=== PATIENT | female | born 1965 | race Caucasian/White ===

== ENCOUNTER 2016-08-18 05:36 | Emergency (ER) | payer OTHER ==
[~2016-08-18] VITALS: Ht 162.6 cm; Wt 62.5 kg
[~2016-08-18 05:36] MED LIST: BACTDS PO; CEPH-443 PO; HYDR-902 PO
[2016-08-18 05:56] VITALS: Ht 162.6 cm; Wt 62.5 kg
[2016-08-18] MEDS ORDERED: ONDANSETRON (ODT) 4 MG TAB ODT STA (07:45)
[2016-08-18] MEDS ORDERED: HYD25 PO (07:46)
[2016-08-18] MEDS ORDERED: ONDA4TAB14 PO (07:46)
[2016-08-18] MEDS ORDERED: IBUP800T25 PO (07:46)
[2016-08-18] MEDS ORDERED: HYDR-902 PO (07:46)
[2016-08-18] MEDS ORDERED: HYDROCODONE/APAP (10/325) TAB PO ONE (08:00)
--- NOTE | 2016-08-18 08:12 | ERD ---
ER Documentation Chief Complaint Date/Time DATE: 08/18/16 TIME: 08:07 Chief Complaint total body pain,hx arthritis HPI 51-year-old female who presents with body pain. The patient describes multiple years of bilateral shoulder and lower extremity pain that is dull aching and throbbing with paresthesias. This is unchanged today. The patient also is noted to have significant hypertension but denies any headache or chest pain. She states that she does not follow up with the primary care physician. She only takes aspirin for the pain. She has not followed up with a primary care doctor clinical research specialist. It is unclear what triggered her visit today. She denies any fevers chills or shortness of breath. ROS All systems reviewed and are negative except as per history of present illness. Medications Home Meds Active Scripts Hydrochlorothiazide* (Hydrochlorothiazide*) 25 Mg Tab, 25 MG PO DAILY, #30 TAB Prov:JOSE TRENT MD 08/18/16 Ibuprofen* (Motrin*) 800 Mg Tab, 800 MG PO Q6H Y for PAIN AND OR ELEVATED TEMP, #30 TAB Prov:JOSE TRENT MD 08/18/16 Ondansetron (Ondansetron Odt) 4 Mg Tab.rapdis, 4 MG PO Q6H Y for NAUSEA AND/OR VOMITING, #10 TAB Prov:JOSE TRENT MD 08/18/16 Hydrocodone/Acetaminophen ([place] 10-325 Tablet) 1 Each Tablet, 1 TAB PO Q6H Y for PAIN, #5 TAB Prov:JOSE TRENT MD 08/18/16 Hydrocodone/Acetaminophen ([place] 10-325 Tablet) 1 Each Tablet, 1 TAB PO Q6H Y for PAIN, #20 TAB Prov:CARLOS A MITTAL PA-C 06/06/16 Cephalexin* (Keflex*) 500 Mg Capsule, 500 MG PO QID for 7 Days, CAP Prov:CARLOS A MITTAL PA-C 06/06/16 Sulfamethoxazole-Trimethoprim* (Bactrim* DS) 800-160 Mg Tab, 1 TAB PO BID for 7 Days, TAB Prov:CARLOS A MITTAL PA-C 06/06/16 Allergies Allergies: Coded Allergies: No Known Allergy (Unverified , 06/06/16) PMhx/Soc History of Surgery: Yes (LEFT RING FINGER, TUBALIGATION.) Anesthesia Reaction: No Hx Neurological Disorder: No Hx Respiratory Disorders: No Hx Cardiac Disorders: No Hx Psychiatric Problems: No Hx Miscellaneous Medical Probl: No Hx Alcohol Use: Yes Hx Substance Use: No Hx Tobacco Use: Yes Smoking Status: Former smoker FmHx Family History: No diabetes Physical Exam Vitals Vital Signs Date Time Temp Pulse Resp B/P Pulse Ox O2 Delivery O2 Flow Rate FiO2 08/18/16 05:56 99.2 107 18 201/103 99 Physical Exam General: Disheveled but no significant distress Head: Normocephalic, atraumatic. Eyes: Pupils equally reactive, EOM intact ENT: Moist mucous membranes Neck: Supple, no lymphadenopathy Respiratory: Lungs clear bilaterally, no distress Cardiovascular: RRR, no murmurs, rubs, or gallops Abdominal: Soft, non-tender, non-distended, no peritoneal signs : Deferred MSK: No edema, no unilateral swelling, 5/5 strength. Upper extremities and shoulders with full active and passive range of motion, no evidence of dislocation. Steady gait. Sensation intact all 4 extremities Neurologic: Alert and oriented, moving all extremities, normal speech, no focal weakness, no cerebellar signs Skin: No rash Psych: Normal mood Results 24 hrs Current Medications Medications (Trade) Dose Ordered Sig/Fredi Route PRN Reason Start Time Stop Time Status Last Admin Dose Admin Acetaminophen/ Hydrocodone Bitart ([place] (10/325)) 1 tab ONCE ONCE PO 08/18/16 08:00 08/18/16 08:01 DC 08/18/16 07:49 Ondansetron HCl (Zofran Odt) 4 mg ONCE STAT ODT 08/18/16 07:45 08/18/16 07:46 DC 08/18/16 07:49 Procedures/MDM The patient apparently has chronic pain. Consider possible rheumatologic disease versus idiopathic chronic pain. No signs or symptoms of septic arthritis or acute fracture. The patient has full active and passive range of motion of bilateral shoulders. Her sensation is intact. The patient will benefit from primary care follow-up. The patient is in dire need of a primary care physician. The patient was given referral information to the [facility]. The patient's [facility] database shows no evidence of significant drug abuse. The patient's [facility] report shows no evidence of frequent visits. The patient will be given a pain control medication in a very small perception for [place] at home. The patient was advised to take Motrin. Avoid regular dosing of aspirin if not needed. Patient's blood pressure was elevated (>120/80) but appears stable without evidence of hypertensive emergency or urgency. The patient was counseled about the risks of hypertension and urged to pursue outpatient monitoring and therapy within a week with their primary care physician. The patient will be started on hydrochlorothiazide. No indication for chest x- ray EKG or CT brain given no evidence of endorgan dysfunction. I would like to avoid aggressive lowering of the patient's blood pressure given likely prolonged elevation in the 200s. We discussed follow up with the patient's primary care doctor within 24 to 48 hours as needed. We also discussed return to the emergency room for worsening symptoms or worsening condition. Discharge Medications: [place], Zofran, Motrin, hydrochlorothiazide We discussed the use of narcotics including avoidance of operating heavy machinery and driving as well as its addictive properties. Departure Diagnosis: Primary Impression: Chronic pain Chronic pain type: other chronic pain Qualified Code: G89.29 - Other chronic pain Additional Impression: Essential hypertension Condition: Stable Patient Instructions: Chronic Pain, Hypertension, New (Begin Treatment) Referrals: [facility] YOU HAVE RECEIVED A MEDICAL SCREENING EXAM AND THE RESULTS INDICATE THAT YOU DO NOT HAVE A CONDITION THAT REQUIRES URGENT TREATMENT IN THE EMERGENCY DEPARTMENT. FURTHER EVALUATION AND TREATMENT OF YOUR CONDITION CAN WAIT UNTIL YOU ARE SEEN IN YOUR DOCTORS OFFICE WITHIN THE NEXT 1-2 DAYS. IT IS YOUR RESPONSIBILITY TO MAKE AN APPOINTMENT FOR FOLOW-UP CARE. IF YOU HAVE A PRIMARY DOCTOR --you should call your primary doctor and schedule an appointment IF YOU DO NOT HAVE A PRIMARY DOCTOR YOU CAN CALL OUR PHYSICIAN REFERRAL HOTLINE AT IF YOU CAN NOT AFFORD TO SEE A PHYSICIAN YOU CAN CHOSE FROM THE FOLLOWING [facility] [address]. [facility] [address] [place] [address] [facility] [address] [facility]. [facility] [address] [facility] [facility] [address] [facility] [address]. [facility] YOU HAVE RECEIVED A MEDICAL SCREENING EXAM AND THE RESULTS INDICATE THAT YOU DO NOT HAVE A CONDITION THAT REQUIRES URGENT TREATMENT IN THE EMERGENCY DEPARTMENT. FURTHER EVALUATION AND TREATMENT OF YOUR CONDITION CAN WAIT UNTIL YOU ARE SEEN IN YOUR DOCTORS OFFICE WITHIN THE NEXT 1-2 DAYS. IT IS YOUR RESPONSIBILITY TO MAKE AN APPOINTMENT FOR FOLOW-UP CARE. IF YOU HAVE A PRIMARY DOCTOR --you should call your primary doctor and schedule and appointment IF YOU DO NOT HAVE A PRIMARY DOCTOR YOU CAN CALL OUR PHYSICIAN REFERRAL HOTLINE AT . IF YOU CAN NOT AFFORD TO SEE A PHYSICIAN YOU CAN CHOSE FROM THE FOLLOWING [facility] INSTITUTIONS: [facility] [id number] [place] [address] [facility] [address] [place], [place] [id number] [place] [address] [address] [place] [address] Additional Instructions: Call your primary care doctor TOMORROW for an appointment during the next 1 WEEK.Tell the personal secretary that you were referred from this facility.See the doctor sooner or return here if your condition worsens before your appointment time. JOSE TRENT MD Aug 18, 2016 08:12
== END 2016-08-18 08:16 | disposition home or self-care (01) ==
LOC: E/R 05:36
DX: G89.29 Other chronic pain (principal); I10 Essential (primary) hypertension; Z87.891 Personal history of nicotine dependence
CPT/HCPCS: Z7610 ×2; 99284

== ENCOUNTER 2017-01-31 07:47 | Emergency (ER) | payer OTHER ==
[~2017-01-31] VITALS: Ht 165.1 cm; Wt 63.0 kg
[~2017-01-31 07:47] MED LIST changes: +HYD25 PO; +IBUP800T25 PO; +ONDA4TAB14 PO
[2017-01-31 07:50] VITALS: Ht 165.1 cm; Wt 63.0 kg
--- NOTE | 2017-01-31 08:08 | ERD ---
ER Documentation Chief Complaint Date/Time DATE: 01/31/17 TIME: 08:06 Chief Complaint Vag bleed x 3 months HPI Patient is a 51-year-old female with a past medical history of fibromyalgia, arthritis and hepatitis C who presents to the ED with mild vaginal bleeding for the last 3 months. She states that in the last 8 months her periods have been irregular however she has been bleeding constantly, mild in the last 3 months with mild pelvic pain. She denies fever or chills. She denies dizziness or headache. She denies abdominal pain, nausea, vomiting or diarrhea. She has not seen her HAND TRUCKER doctor regarding this issue. Denies leg pain or leg swelling. Denies chest pain or cough or shortness of breath. ROS All systems reviewed and are negative except as per history of present illness. Medications Home Meds Active Scripts Nitrofurantoin Monohyd Macrocr* (Macrobid*) 100 Mg Capsr, 100 MG PO BID for 7 Days, CAP Prov:ALEJANDRA WASHINGTON PA-C 01/31/17 Acetaminophen* (Tylophen*) 500 Mg Capsule, 1 CAP PO Q6H Y for PAIN AND OR ELEVATED TEMP, #20 CAP Prov:ALEJANDRA WASHINGTON PA-C 01/31/17 Hydrochlorothiazide* (Hydrochlorothiazide*) 25 Mg Tab, 25 MG PO DAILY, #30 TAB Prov:JOSE TRENT MD 08/18/16 Ibuprofen* (Motrin*) 800 Mg Tab, 800 MG PO Q6H Y for PAIN AND OR ELEVATED TEMP, #30 TAB Prov:JOSE TRENT MD 08/18/16 Ondansetron (Ondansetron Odt) 4 Mg Tab.rapdis, 4 MG PO Q6H Y for NAUSEA AND/OR VOMITING, #10 TAB Prov:JOSE TRENT MD 08/18/16 Hydrocodone/Acetaminophen ([place] 10-325 Tablet) 1 Each Tablet, 1 TAB PO Q6H Y for PAIN, #5 TAB Prov:JOSE TRENT MD 08/18/16 Hydrocodone/Acetaminophen ([place] 10-325 Tablet) 1 Each Tablet, 1 TAB PO Q6H Y for PAIN, #20 TAB Prov:CARLOS A MITTAL PA-C 06/06/16 Cephalexin* (Keflex*) 500 Mg Capsule, 500 MG PO QID for 7 Days, CAP Prov:CARLOS A MITTAL PA-C 06/06/16 Sulfamethoxazole-Trimethoprim* (Bactrim* DS) 800-160 Mg Tab, 1 TAB PO BID for 7 Days, TAB Prov:CARLOS A MITTAL PA-C 06/06/16 Allergies Allergies: Coded Allergies: No Known Allergy (Unverified , 06/06/16) PMhx/Soc History of Surgery: Yes (LEFT RING FINGER, TUBALIGATION.) Anesthesia Reaction: No Hx Neurological Disorder: No Hx Respiratory Disorders: No Hx Cardiac Disorders: No Hx Psychiatric Problems: No Hx Miscellaneous Medical Probl: Yes (Hepatitis C, fibromyalgia, arthritis) Hx Alcohol Use: Yes (1-2 glasses per day) Hx Substance Use: No Hx Tobacco Use: Yes (10 cigarettes per day) Smoking Status: Never smoker FmHx Family History: No coronary disease, No diabetes, No other Physical Exam Vitals Vital Signs Date Time Temp Pulse Resp B/P Pulse Ox O2 Delivery O2 Flow Rate FiO2 01/31/17 07:50 98.0 88 20 156/87 97 Physical Exam GENERAL: Well-developed, well-nourished female. Appears in no acute distress. HEAD: Normocephalic, atraumatic. LUNG: Clear to auscultation bilaterally. No rhonchi, wheezing, rales or coarse breath sounds. HEART: Regular rate and rhythm. No murmurs, rubs or gallops. ABDOMEN: No scars, ecchymosis or rashes noted. Soft, nontender, and nondistended. Positive bowel sounds in all four quadrants. No rebound tenderness , no guarding. (-) McBurneys point tenderness. No CVA tenderness. BACK: No midline tenderness. Extremities: Equal pulses bilaterally. No peripheral clubbing, cyanosis or edema. No unilateral leg swelling. NEUROLOGIC: Alert and oriented. Moving all four extremities. 5/5 strength in all extremities. Normal speech. Steady gait. SKIN: Normal color. Warm and dry. No rashes or lesions. Capillary refill < 2 seconds Result Diagram: 01/31/17 0823 Results 24 hrs Laboratory Tests Test 01/31/17 08:23 01/31/17 09:34 White Blood Count 9.210^3/ul Red Blood Count 4.6210^6/ul Hemoglobin 13.5g/dl Hematocrit 40.4% Mean Corpuscular Volume 87.4fl Mean Corpuscular Hemoglobin 29.2pg Mean Corpuscular Hemoglobin Concent 33.4g/dl Red Cell Distribution Width 13.8% Platelet Count 44301^3/UL Mean Platelet Volume 10.1fl Neutrophils % 65.9% Lymphocytes % 25.9% Monocytes % 5.8% Eosinophils % 1.9% Basophils % 0.3% Nucleated Red Blood Cells % 0.0/100WBC Neutrophils # 6.110^3/ul Lymphocytes # 2.410^3/ul Monocytes # 0.510^3/ul Eosinophils # 0.210^3/ul Basophils # 0.010^3/ul Nucleated Red Blood Cells # 0.010^3/ul Urine Color RED Urine Clarity CLOUDY Urine pH 5.0 Urine Specific [place] 1.020 Urine Ketones TRACEmg/dL Urine Nitrite POSITIVEmg/dL Urine Bilirubin NEGATIVEmg/dL Urine Urobilinogen 2+mg/dL Urine Leukocyte Esterase TRACELeu/ul Urine Microscopic RBC > 182/HPF Urine Microscopic WBC > 182/HPF Urine Squamous Epithelial Cells FEW/HPF Urine Bacteria FEW/HPF Urine Hemoglobin 3+mg/dL Urine Glucose NEGATIVEmg/dL Urine Total Protein 2+mg/dl Procedures/MDM ER COURSE: I kept the patient and/or family informed of laboratory and diagnostic imaging results throughout the emergency room course. IMAGING STUDIES [place] [address] Radiology Main Line: [phone] DIAGNOSTIC IMAGING REPORT Patient: SIRENA CHE : 1965 Age: 51 Sex: F MR #: [id number] DOS: 01/31/17 0803 Ordering MD: ALEJANDRA WASHINGTON PA-C Location: [facility] Room/Bed: PROCEDURE: US Pelvis CLINICAL INDICATION: pelvic pain, vaginal bleeding TECHNIQUE: Multiple sonographic images of the pelvis were obtained utilizing a transabdominal and endovaginal technique. The images were reviewed on a PACS workstation. COMPARISON: None. LMP: 10/28/2016 FINDINGS: The uterus measures 7.9 x 3.6 x 4.9 cm. The endometrial echo complex measures 11 mm in thickness. The uterus is heterogeneous and the junctional zone between the endometrium and myometrium is indistinct. A sub-centimeter Nabothian cyst is identified. The right ovary measures 3.6 x 2.4 x 3.4 cm. The left ovary is not visualized. There is normal vascular flow in the right ovary. There is a well-circumscribed mildly hypoechoic round lesion with uniform echoes in the right ovary measuring up to 1.6 cm which may be cystic given its posterior acoustic enhancement. A possible focus of vascular flow is noted within it. No significant pelvic free fluid is identified. IMPRESSION: The uterus is heterogeneous and the junctional zone between the endometrium and myometrium is indistinct. Correlation for adenomyosis is recommended. 1.6 cm well-circumscribed possibly complex cystic lesion in the right ovary is nonspecific. A possible focus of vascular flow is noted within it. This may be an endometrioma although malignancy cannot be entirely excluded. Follow-up ultrasound in 6-12 weeks is recommended for further evaluation. Nonvisualization of the left ovary. RPTAT: EE Physician Jose Date Time Electronically viewed and signed by Physician Jose on 01/31/2017 08:56 RA/ CC: ALEJANDRA WASHINGTON PA-C LABORATORY STUDIES [place] [address] Radiology Main Line: [phone] DIAGNOSTIC IMAGING REPORT Patient: SIRENA CHE : 1965 Age: 51 Sex: F MR #: [id number] DOS: 01/31/17 0803 Ordering MD: ALEJANDRA WASHINGTON PA-C Location: [facility] Room/Bed: PROCEDURE: US Pelvis CLINICAL INDICATION: pelvic pain, vaginal bleeding TECHNIQUE: Multiple sonographic images of the pelvis were obtained utilizing a transabdominal and endovaginal technique. The images were reviewed on a PACS workstation. COMPARISON: None. LMP: 10/28/2016 FINDINGS: The uterus measures 7.9 x 3.6 x 4.9 cm. The endometrial echo complex measures 11 mm in thickness. The uterus is heterogeneous and the junctional zone between the endometrium and myometrium is indistinct. A sub-centimeter Nabothian cyst is identified. The right ovary measures 3.6 x 2.4 x 3.4 cm. The left ovary is not visualized. There is normal vascular flow in the right ovary. There is a well-circumscribed mildly hypoechoic round lesion with uniform echoes in the right ovary measuring up to 1.6 cm which may be cystic given its posterior acoustic enhancement. A possible focus of vascular flow is noted within it. No significant pelvic free fluid is identified. IMPRESSION: The uterus is heterogeneous and the junctional zone between the endometrium and myometrium is indistinct. Correlation for adenomyosis is recommended. 1.6 cm well-circumscribed possibly complex cystic lesion in the right ovary is nonspecific. A possible focus of vascular flow is noted within it. This may be an endometrioma although malignancy cannot be entirely excluded. Follow-up ultrasound in 6-12 weeks is recommended for further evaluation. Nonvisualization of the left ovary. RPTAT: EE Physician Jose Date Time Electronically viewed and signed by Physician Jose on 01/31/2017 08:56 RA/ CC: ALEJANDRA WASHINGTON PA-C MEDICAL DECISION MAKING: This is a 51-year-old female with a past medical history of fibromyalgia and hepatitis C who presents with mild vaginal bleeding 3 months with irregular periods 8 months. Vital signs were reviewed. Patient is afebrile. Patient is not hypoxic. Patient is not toxic or ill-appearing. Her CBC was within normal limits and did not show signs of anemia or severe infection. Her ultrasound shows possible adenomyosis with 1.6 cm well-circumscribed possibly complex cystic lesion in the right ovary is nonspecific. A possible focus of vascular flow is noted within it. This may be an endometrioma although malignancy cannot be entirely excluded. Follow-up ultrasound in 6-12 weeks is recommended for further evaluation. These results the patient and advised her to follow-up with an HAND TRUCKER for the possible malignant cystic lesion. Patient is aware that she needs to follow- up. Patient is hemodynamically stable. Low suspicion for ectopic , , molar , endometriosis, PID, cervicitis, septic , molar , HELLP syndrome. Her urinalysis shows positive nitrites with trace leukocytes. Patient has a UTI. Low suspicion for pyelonephritis as patient is afebrile and does not have back pain. Low suspicion for septic or obstructive stone. DISCHARGE: At this time, patient is stable for discharge and outpatient management with no new complaints during the ER course. Patient was sent home with copy of imaging report, a list of HAND TRUCKER referral and Tylenol. Patient will be discharged home with instructions to recheck for new or worsening symptoms such as fever, nausea , weakness, LOC and to follow up with primary care in the next 1-2 days. Patient was advised to return to the ER for any new or worsening symptoms. Plan was discussed and patient and/or family understands and agrees. Home instructions were given. Departure Diagnosis: Primary Impression: Vaginal bleeding Additional Impression: UTI (urinary tract infection) Urinary tract infection type: site unspecified Hematuria presence: with hematuria Qualified Code: N39.0 - Urinary tract infection with hematuria, site unspecified Condition: Stable ALEJANDRA WASHINGTON PA-C Jan 31, 2017 08:08
[2017-01-31 08:42] LABS: ADD SCAN DIFF NO
[2017-01-31 08:46] LABS: BASOPHILS % 0.3 % (0.0-2.0); EOSINOPHILS # 0.2 10^3/ul (0.0-0.5); EOSINOPHILS % 1.9 % (0.0-7.0); HEMATOCRIT 40.4 % (37.0-47.0); HEMOGLOBIN 13.5 g/dl (12.0-16.0); LYMPHOCYTES # 2.4 10^3/ul (0.8-2.9); LYMPHOCYTES % 25.9 % (15.0-51.0); MEAN CORPUSCULAR HEMOGLOBIN 29.2 pg (29.0-33.0); MEAN CORPUSCULAR HGB CONC 33.4 g/dl (32.0-37.0); MEAN CORPUSCULAR VOLUME 87.4 fl (82.0-101.0); MEAN PLATELET VOLUME 10.1 fl (7.4-10.4); MONOCYTE # 0.5 10^3/ul (0.3-0.9); MONOCYTES % 5.8 % (0.0-11.0); NEUTROPHIL # 6.1 10^3/ul (1.6-7.5); NEUTROPHILS % 65.9 % (39.0-77.0); PLATELET COUNT 292 10^3/UL (140-415); RED BLOOD COUNT 4.62 10^6/ul (4.20-5.40); RED CELL DISTRIBUTION WIDTH 13.8 % (11.5-14.5); WHITE BLOOD COUNT 9.2 10^3/ul (4.8-10.8)
--- NOTE | 2017-01-31 08:56 | RADRPT ---
PROCEDURE: US Pelvis CLINICAL INDICATION: pelvic pain, vaginal bleeding TECHNIQUE: Multiple sonographic images of the pelvis were obtained utilizing a transabdominal and endovaginal technique. The images were reviewed on a PACS workstation. COMPARISON: None. LMP: 10/28/2016 FINDINGS: The uterus measures 7.9 x 3.6 x 4.9 cm. The endometrial echo complex measures 11 mm in thickness. The uterus is heterogeneous and the junctional zone between the endometrium and myometrium is indist inct. A sub-centimeter Nabothian cyst is identified. The right ovary measures 3.6 x 2.4 x 3.4 cm. The left ovary is not visualized. There is normal vascu lar flow in the right ovary. There is a well-circumscribed mildly hypoechoic round lesion with uniform echoes in the right ovary measuring up to 1.6 cm which may be cystic given its posterior acoustic enhancement. A possible foc us of vascular flow is noted within it. No significant pelvic free fluid is identified. IMPRESSION: The uterus is heterogeneous and the junctional zone between the endometrium and myometrium is indist inct. Correlation for adenomyosis is recommended. 1.6 cm well-circumscribed possibly complex cystic lesion in the right ovary is nonspecific. A possi ble focus of vascular flow is noted within it. This may be an endometrioma although malignancy rosa ot be entirely excluded. Follow-up ultrasound in 6-12 weeks is recommended for further evaluation. Nonvisualization of the left ovary. RPTAT: EE Physician Jose Date Time Electronically viewed and signed by Physician Jose on 01/31/2017 08:56 /
[2017-01-31] MEDS ORDERED: ACET500C5 PO (09:07)
[2017-01-31 09:46] LABS: ADD UMIC YES; UR ASCORBIC ACID NEGATIVE (NEGATIVE); UR BACTERIA FEW /HPF (NONE SEEN); UR BILIRUBIN (Dip) NEGATIVE (NEGATIVE); UR BLOOD (Dip) 3+ mg/dL (NEGATIVE); UR CLARITY CLOUDY (CLEAR); UR COLOR RED (YELLOW); UR GLUCOSE (Dip) NEGATIVE (NEGATIVE); UR KETONES (Dip) TRACE mg/dL (NEGATIVE); UR LEUKOCYTE ESTERASE (Dip) TRACE Leu/ul (NEGATIVE); UR NITRITE (Dip) POSITIVE (NEGATIVE); UR RBC > 182 /HPF (0-5); UR SQUAMOUS EPITHELIAL CELL FEW /HPF (FEW); UR TOTAL PROTEIN (Dip) 2+ mg/dl (NEGATIVE); UR UROBILINOGEN (Dip) 2+ mg/dL (NEGATIVE); UR WBC CLUMPS MANY /HPF (NONE SEEN)
[2017-01-31] MEDS ORDERED: NITR-58 PO (09:56)
== END 2017-01-31 10:05 | disposition home or self-care (01) ==
LOC: FTE 07:47
DX: N93.8 Other specified abnormal uterine and vaginal bleeding (principal); N39.0 Urinary tract infection, site not specified; R10.2 Pelvic and perineal pain; Z87.891 Personal history of nicotine dependence
CPT/HCPCS: 36415; 76830; 76856; 81001; 85025

== ENCOUNTER 2017-05-07 16:10 | Emergency (ER) | payer OTHER ==
[~2017-05-07] VITALS: Ht 162.6 cm; Wt 62.5 kg
[~2017-05-07 16:10] MED LIST changes: +ACET500C5 PO; -HYD25 PO; +HYDR25TA6 PO; +NITR-58 PO
[2017-05-07 16:17] VITALS: Ht 162.6 cm; Wt 62.5 kg
[2017-05-07] MEDS ORDERED: HYDROCODONE/APAP (5/325) TAB PO ONE (18:00)
[2017-05-07] MEDS: KETOROLAC 60 MG INJ IM STA ×2 (18:11→18:38)
[2017-05-07 18:35] LABS: URINE BLOOD (Dip) POC Trace-intact (NEGATIVE)
[2017-05-07 18:46] LABS: URINE BLOOD (Dip) POC Trace-intact (NEGATIVE)
[2017-05-07] MEDS ORDERED: CEPH-443 PO (18:54)
[2017-05-07] MEDS ORDERED: TRAM50TA2 PO (18:55)
--- NOTE | 2017-05-07 18:58 | ERD ---
ER Documentation Chief Complaint Date/Time DATE: 05/07/17 TIME: 18:56 Chief Complaint bilateral knee pain,swelling, and numbness HPI This 51-year-old female complains of pain behind her bilateral knees for the last day. Started after walking with her walker. She also has pain in anterior knees. She has a history of arthritis and low back pain. She denies any bowel or bladder incontinence, weakness. She also complains of paresthesias in her thighs extending down to her knees. Patient has a history of fibromyalgia AND chronic musculoskeletal pain. Patient has an additional complaint of urinary frequency and urgency. She denies any fevers, vomiting, abdominal pain. ROS All systems reviewed and are negative except as per history of present illness. Medications Home Meds Active Scripts Tramadol HCl (Tramadol HCl) 50 Mg Tablet, 50 MG PO Q4 Y for PAIN, #15 TAB Prov:CHANDRA LA MD 05/07/17 Cephalexin* (Keflex*) 500 Mg Capsule, 500 MG PO QID for 5 Days, CAP Prov:CHANDRA LA MD 05/07/17 Nitrofurantoin Monohyd Macrocr* (Macrobid*) 100 Mg Capsr, 100 MG PO BID for 7 Days, CAP Prov:ALEJANDRA WASHINGTON PA-C 01/31/17 Acetaminophen* (Tylophen*) 500 Mg Capsule, 1 CAP PO Q6H Y for PAIN AND OR ELEVATED TEMP, #20 CAP Prov:ALEJANDRA WASHINGTON PA-C 01/31/17 Hydrochlorothiazide* (Hydrochlorothiazide*) 25 Mg Tab, 25 MG PO DAILY, #30 TAB Prov:JOSE TRENT MD 08/18/16 Ibuprofen* (Motrin*) 800 Mg Tab, 800 MG PO Q6H Y for PAIN AND OR ELEVATED TEMP, #30 TAB Prov:JOSE TRENT MD 08/18/16 Ondansetron (Ondansetron Odt) 4 Mg Tab.rapdis, 4 MG PO Q6H Y for NAUSEA AND/OR VOMITING, #10 TAB Prov:JOSE TRENT MD 08/18/16 Hydrocodone/Acetaminophen ([place] 10-325 Tablet) 1 Each Tablet, 1 TAB PO Q6H Y for PAIN, #5 TAB Prov:JOSE TRENT MD 08/18/16 Hydrocodone/Acetaminophen ([place] 10-325 Tablet) 1 Each Tablet, 1 TAB PO Q6H Y for PAIN, #20 TAB Prov:CARLOS A MITTAL PA-C 06/06/16 Cephalexin* (Keflex*) 500 Mg Capsule, 500 MG PO QID for 7 Days, CAP Prov:CARLOS A MITTAL PA-C 06/06/16 Sulfamethoxazole-Trimethoprim* (Bactrim* DS) 800-160 Mg Tab, 1 TAB PO BID for 7 Days, TAB Prov:CARLOS A MITTAL PA-C 06/06/16 Allergies Allergies: Coded Allergies: No Known Allergy (Unverified , 06/06/16) PMhx/Soc History of Surgery: Yes (LEFT RING FINGER, TUBALIGATION.) Anesthesia Reaction: No Hx Neurological Disorder: No Hx Respiratory Disorders: No Hx Cardiac Disorders: No Hx Psychiatric Problems: No Hx Miscellaneous Medical Probl: Yes (Hepatitis C, fibromyalgia, arthritis) Hx Alcohol Use: Yes (1-2 glasses per day) Hx Substance Use: No Hx Tobacco Use: Yes (10 cigarettes per day) Smoking Status: Current every day smoker Physical Exam Vitals Vital Signs Date Time Temp Pulse Resp B/P Pulse Ox O2 Delivery O2 Flow Rate FiO2 05/07/17 16:17 98.6 93 18 153/91 97 Physical Exam Const: [], [id number]. Head: Atraumatic Eyes: Normal Conjunctiva ENT: Normal External Ears, Nose and Mouth. Poor dentition Neck: Full range of motion..~ No meningismus. Resp: Clear to auscultation bilaterally Cardio: Regular rate and rhythm, no murmurs Abd: Soft, non tender, non distended. Normal bowel sounds Skin: No petechiae or rashes Back: No midline or flank tenderness Ext: No cyanosis, or edema mild effusion in the left knee. Tenderness in the bilateral popliteal fossa. No calf swelling or Homans sign. No warmth or deformities. Neur: Awake and alert Psych: Normal Mood and Affect Results 24 hrs Laboratory Tests Test 05/07/17 18:43 05/07/17 18:53 Bedside Urine pH (LAB) 5.5 5.5 Bedside Urine Protein (LAB) Negative Trace Bedside Urine Glucose (UA) Negative Negative Bedside Urine Ketones (LAB) Trace Trace Bedside Urine Blood Trace-intact Trace-intact Bedside Urine Nitrite (LAB) Positive Positive Bedside Urine Leukocyte Esterase (L 1+ 1+ Current Medications Medications (Trade) Dose Ordered Sig/Fredi Route PRN Reason Start Time Stop Time Status Last Admin Dose Admin Ketorolac Tromethamine (Toradol) 60 mg ONCE STAT IM 05/07/17 17:39 05/07/17 17:40 DC 05/07/17 18:38 Acetaminophen/ Hydrocodone Bitart ([place] (5/325)) 1 tab ONCE ONCE PO 05/07/17 18:00 05/07/17 18:01 DC 05/07/17 18:12 Cephalexin (Keflex) 500 mg ONCE ONCE PO 05/07/17 19:00 05/07/17 19:01 Procedures/MDM Was given Toradol 60 mg IM. Given [place] 5 mg by mouth or urine shows nitrites and leukocytes and hCG is negative. Clinical exam shows no findings to suggest DVT, septic arthritis, fracture, dislocation, ischemia. Patient does not have signs or symptoms to suggest cauda equina syndrome, epidural abscess or acute neurologic deficit. She will treated with Keflex and tramadol and further observation at home and primary care follow-up and return precautions. The patient was stable with no new complaints during the ER course. Clinically, there is no current evidence to suggest meningitis, sepsis, acute abdomen, pneumonia, acute coronary syndrome, pulmonary embolism, or any other emergent condition appearing to require further evaluation or hospitalization. The patient should certainly return for any new or worsening symptoms per the aftercare instructions. They should otherwise follow-up with her primary care doctor for reevaluation this week. Disclaimer: Inadvertent spelling and grammatical errors are likely due to EHR/dictation software use and do not reflect on the overall quality of patient care. Also, please note that the electronic time recorded on this note does not necessarily reflect the actual time of the patient encounter. Departure Diagnosis: Primary Impression: UTI (urinary tract infection) Urinary tract infection type: acute cystitis Hematuria presence: without hematuria Qualified Code: N30.00 - Acute cystitis without hematuria Additional Impression: Knee pain Chronicity: acute Laterality: bilateral Qualified Code: M25.561 - Acute pain of both knees Condition: Stable Patient Instructions: Understanding Urinary Tract Infections (UTIs), Knee Pain , Uncertain Cause, Paraesthesias Referrals: [facility] YOU HAVE RECEIVED A MEDICAL SCREENING EXAM AND THE RESULTS INDICATE THAT YOU DO NOT HAVE A CONDITION THAT REQUIRES URGENT TREATMENT IN THE EMERGENCY DEPARTMENT. FURTHER EVALUATION AND TREATMENT OF YOUR CONDITION CAN WAIT UNTIL YOU ARE SEEN IN YOUR DOCTORS OFFICE WITHIN THE NEXT 1-2 DAYS. IT IS YOUR RESPONSIBILITY TO MAKE AN APPOINTMENT FOR FOLOW-UP CARE. IF YOU HAVE A PRIMARY DOCTOR --you should call your primary doctor and schedule an appointment IF YOU DO NOT HAVE A PRIMARY DOCTOR YOU CAN CALL OUR PHYSICIAN REFERRAL HOTLINE AT IF YOU CAN NOT AFFORD TO SEE A PHYSICIAN YOU CAN CHOSE FROM THE FOLLOWING [facility] [address] [facility] [address] [facility] [address] [facility] [address] [place] [facility] [address] [facility]. [address] Additional Instructions: Urine shows infection. See primary doctor for further evaluation and treatment. For fevers, redness symptoms. CHANDRA LA MD May 07, 2017 18:58
[2017-05-07] MEDS ORDERED: CEPHALEXIN 500 MG CAP PO ONE (19:00)
== END 2017-05-07 19:23 | disposition home or self-care (01) ==
LOC: FTE 16:10
DX: N30.00 Acute cystitis without hematuria (principal); M25.562 Pain in left knee; F17.210 Nicotine dependence, cigarettes, uncomplicated
CPT/HCPCS: 81003; J1885; Z7610; 96372

== ENCOUNTER 2017-11-22 21:03 | Emergency (ER) | END 2017-11-23 08:49 | disposition short-term general hospital (02) ==

== ENCOUNTER 2019-01-11 21:19 | Emergency (ER) | payer OTHER ==
[~2019-01-11] VITALS: Ht 162.6 cm; Wt 63.6 kg
[~2019-01-11 21:19] MED LIST changes: +HYDR-3980 PO; -HYDR-902 PO; -IBUP800T25 PO; +IBUP800T48 PO; +TRAM50TA2 PO
[2019-01-11 21:30] VITALS: Ht 162.6 cm; Wt 63.6 kg
--- NOTE | 2019-01-11 22:06 | ERD ---
ER Documentation Chief Complaint Chief Complaint vag bleed x2 day. on menopause x1 year. HPI 53-year-old female, with history of hepatitis C, presents to the emergency department, complaining of 3 days with dysuria, associated with vaginal spotting. The patient denies fever or chills, no abdominal pain, no nausea or vomiting. ROS All systems reviewed and are negative except as per history of present illness. Medications Home Meds Active Scripts Ciprofloxacin Hcl* (Ciprofloxacin Hcl*) 250 Mg Tablet, 250 MG PO BID, #14 TAB Prov:LEROY HENNESSY MD 01/12/19 Tramadol HCl (Tramadol HCl) 50 Mg Tablet, 50 MG PO Q4 PRN for PAIN, #15 TAB Prov:CHANDRA LA MD 05/07/17 Cephalexin* (Keflex*) 500 Mg Capsule, 500 MG PO QID for 5 Days, CAP Prov:CHANDRA LA MD 05/07/17 Nitrofurantoin Monohyd Macrocr* (Macrobid*) 100 Mg Capsr, 100 MG PO BID for 7 Days, CAP Prov:ALEJANDRA WASHINGTON PA-C 01/31/17 Acetaminophen* (Tylophen*) 500 Mg Capsule, 1 CAP PO Q6H PRN for PAIN AND OR ELEVATED TEMP, #20 CAP Prov:ALEJANDRA WASHINGTON PA-C 01/31/17 Hydrochlorothiazide* (Hydrochlorothiazide*) 25 Mg Tab, 25 MG PO DAILY, #30 TAB Prov:JOSE TRENT MD 08/18/16 Ibuprofen* (Motrin*) 800 Mg Tab, 800 MG PO Q6H PRN for PAIN AND OR ELEVATED TEMP, #30 TAB Prov:JOSE TRENT MD 08/18/16 Ondansetron (Ondansetron Odt) 4 Mg Tab.rapdis, 4 MG PO Q6H PRN for NAUSEA AND/OR VOMITING, #10 TAB Prov:JOSE TRENT MD 08/18/16 Hydrocodone/Acetaminophen ([place] 10-325 Tablet) 1 Each Tablet, 1 TAB PO Q6H PRN for PAIN, #5 TAB Prov:JOSE TRENT MD 08/18/16 Hydrocodone/Acetaminophen ([place] 10-325 Tablet) 1 Each Tablet, 1 TAB PO Q6H PRN for PAIN, #20 TAB Prov:CARLOS A MITTAL PA-C 06/06/16 Cephalexin* (Keflex*) 500 Mg Capsule, 500 MG PO QID for 7 Days, CAP Prov:CARLOS A MITTAL PA-C 06/06/16 Sulfamethoxazole-Trimethoprim* (Bactrim* DS) 800-160 Mg Tab, 1 TAB PO BID for 7 Days, TAB Prov:CARLOS A MITTAL PA-C 06/06/16 Allergies Allergies: Coded Allergies: No Known Allergy (Unverified , 06/06/16) PMhx/Soc History of Surgery: Yes (Hytsy, tonsils) Anesthesia Reaction: No Hx Neurological Disorder: No Hx Respiratory Disorders: No Hx Cardiac Disorders: No Hx Psychiatric Problems: No Hx Miscellaneous Medical Probl: Yes (Fibromyalgia) Hx Alcohol Use: No Hx Substance Use: No Hx Tobacco Use: No Smoking Status: Never smoker FmHx Family History: diabetes; No coronary disease Physical Exam Vitals Vital Signs Date Temp Pulse Resp B/P (MAP) Pulse Ox O2 O2 Flow FiO2 Time Delivery Rate 01/12/19 97.6 82 18 164/95 97 Room Air 01:07 (118) 01/11/19 97.0 96 16 185/93 99 21:30 (123) Physical Exam Const: No acute distress Head: Atraumatic Eyes: Normal Conjunctiva ENT: Normal External Ears, Nose and Mouth. Neck: Full range of motion. No meningismus. Resp: Clear to auscultation bilaterally Cardio: Regular rate and rhythm, no murmurs Abd: Soft, non tender, non distended. Normal bowel sounds. : Normal external genitalia, bimanual exam, no evidence of vaginal bleeding. Skin: No petechiae or rashes Back: No midline or flank tenderness Ext: No cyanosis, or edema Neur: Awake and alert Psych: Normal Mood and Affect Results 24 hrs Laboratory Tests Test 01/11/19 22:05 Urine Color YELLOW Urine Clarity SLIGHTLY CLOUDY Urine pH 5.0 Urine Specific [place] 1.028 Urine Ketones NEGATIVE mg/dL Urine Nitrite NEGATIVE mg/dL Urine Bilirubin NEGATIVE mg/dL Urine Urobilinogen 2+ mg/dL Urine Leukocyte Esterase 2+ Nasim/ul Urine Microscopic RBC 24 /HPF Urine Microscopic WBC 84 /HPF Urine Squamous Epithelial Cells FEW /HPF Urine Bacteria FEW /HPF Urine Mucus MANY /HPF Urine Hemoglobin 2+ mg/dL Urine Glucose NEGATIVE mg/dL Urine Total Protein NEGATIVE mg/dl Urine Test NEGATIVE Current Medications Medications Dose Sig/Fredi Start Time Status Last (Trade) Ordered Route PRN Stop Time Admin Dose Reason Admin 500 mg ONCE ONCE 01/11/19 DC 01/11/19 Ciprofloxacin PO 23:30 01/11/19 23:28 (Cipro) 23:31 Patient: SIRENA CHE : 1965 Age: 53 Sex: F MR #: [id number] DOS: 01/11/19 2204 Ordering MD: LEROY HENNESSY MD Location: [facility] Room/Bed: PROCEDURE: CT Abdomen and Pelvis without contrast. CLINICAL INDICATION: Abdominal pain, pelvic pain, postmenopausal vaginal bleeding. TECHNIQUE: A CT scan of the abdomen and pelvis was performed without intravenous contrast. Coronal and sagittal reformatted images were generated. DICOM images are available. Images were reviewed on a high-resolution PACS workstation. CTDIvol: 8.40 mGy. DLP: 436.56 mGy-cm. One or more of the following dose reduction techniques were used: - Automated exposure control. - Adjustment of the mA and/or kV according to patient size. - Use of iterative reconstruction technique. COMPARISON: Pelvic ultrasound dated 01/31/2017. FINDINGS: The lung bases are clear. Evaluation of the abdominal and pelvic viscera is limited by the lack of oral and intravenous contrast. The liver is mildly enlarged (18.8 cm). The gallbladder is contracted. The c ommon bile duct is not dilated. The spleen is not enlarged. No pancreatic lesion is identified and there is no pancreatic ductal dilatation. The adrenal glands are unremarkable. The kidneys are normal in size. There is no perinephric fat stranding. No h ydronephrosis is seen. No urinary stone is identified. The small and large bowel are normal in caliber. There is no bowel wall thickening. There is mild sigmoid colon diverticulosis. The appendix is normal. The urinary bladder is unremarkable. There are bilateral ovarian cysts measuring up to 2.5 cm on the left. The endometrium measures 2.3 cm in thickness. No lymphadenopathy is identified. There is no ascites. No pneumoperitoneum is seen. There are mild to moderate arterial calcifications. No suspicious osseous lesion is identified. There is grade 1 degenerative L4 anterolisthesis and severe spinal canal stenosis L4-5. IMPRESSION: Abnormal endometrial thickening (2.3 cm). Correlation with ultrasound is recommended. Bilateral ovarian cysts measuring up to 2.5 cm on the left. Mild hepatomegaly. Mild sigmoid colon diverticulosis. Mild to moderate atherosclerotic arterial calcifications. Grade 1 degenerative L4 anterolisthesis and severe spinal canal stenosis L4-5. Procedures/MDM Differential diagnosis include but not limited to: UTI, colitis, gastroenteritis, kidney stones, irritable bowel syndrome, inflammatory bowel syndrome, malabsorption syndrome, cholelithiasis, food intolerance, medication side effect, pancreatitis, diverticulitis, bowel obstruction. Low suspicion for acute abdomen Physical examination and clinical presentation consistent most likely with urinary tract infection. CT of the abdomen and pelvis shows abnormal endometrium, the patient was informe d about the results and was told to follow-up with her primary doctor for further evaluation. During the ED course the patient remained stable, no new complaints. Results and clinical impression discussed with patient who agrees with management. The patient is stable to be treated outpatient and will be discharged home, some side effects of prescribed medications (headache, rash, n ausea, vomiting, diarrhea, drowsiness, habituation, bleeding, hypertension, interactions with other medications) were reviewed. The patient was instructed to follow up with the primary care provider in the next 48h. If symptoms persist, worsen or new symptoms develop, then patient should return to the ED immediately. Instructions explained and given directly by me to the patient with acknowledgment and demonstrated understanding. Disclaimer: Inadvertent spelling and grammatical errors are likely due to EHR/dictation software use and do not reflect on the overall quality of patient care. Also, please note that the electronic time recorded on this note does not necessarily reflect the actual time of the patient encounter. Departure Diagnosis: Primary Impression: UTI (urinary tract infection) Additional Impression: Thickened endometrium Condition: Stable Additional Instructions: Thank you very much for allowing us to participate in your care. Your health and safety is our top priority at [facility]. The evaluation in the emergency department has been done to rule out an acute emergency, chronic conditions like malignancy or other diseases have not been evaluated; therefore, you need to follow up with a primary care provider in the next 48h. If symptoms persist, worsen or new symptoms develop, then patient should return to the ED immediately. Call your primary care doctor TOMORROW for an appointment during the next 2-4 days and bring all the information provided. Have prescriptions filled and follow precisely the directions on the label. If the symptoms get worse and your provider is unavailable, return to the Emergency Department immediately. LEROY HENNESSY MD Jan 11, 2019 22:06
[2019-01-11] MEDS ORDERED: CIPROFLOXACIN 500 MG TAB PO ONE (23:30)
[2019-01-12] MEDS ORDERED: CIPR-193 PO (00:53)
[2019-01-12 01:07] VITALS: BP 164/95; PULSE 82; RESP 18
== END 2019-01-12 01:08 | disposition home or self-care (01) ==
LOC: FTE 21:19
DX: N39.0 Urinary tract infection, site not specified (principal); R93.89 Abnormal findings on diagnostic imaging of other specified body structures; R10.2 Pelvic and perineal pain
CPT/HCPCS: 74176; 81001; 84703; Z7610